=== PATIENT | male | born 1940 | race Caucasian/White ===

== ENCOUNTER → 2019-03-22 14:05 | Outpatient (CLI) | payer MEDICARE, SELFPAY ==
[2019-03-22 14:40] LABS: Basophils # 0.1 K/mm3 (0-0.2); Basophils % 1.1 % (0.1-2.0); Eosinophils # 0.3 K/mm3 (0.0-0.4); Eosinophils % 5.3 % (0.1-12.0); Hematocrit 44.7 % (42.0-52.0); Hemoglobin 13.7 g/dL (14.1-18.0); Lymphocytes # 1.7 K/mm3 (0.7-4.5); Lymphocytes % 34.9 % (10-50); Mean Corpuscular HGB Conc 30.5 g/dL (31.8-35.4); Mean Corpuscular Hemoglobin 30.9 pg (27.0-31.2); Mean Corpuscular Volume 101.3 fl (80-94); Mean Platelet Volume 8.1 fl (7.4-10.4); Monocytes # 0.5 K/mm3 (0.1-1.0); Neutrophils # 2.4 K/mm3 (1.8-7.8); Neutrophils % 48.7 % (37.0-80.0); Platelet Count 258 K/mm3 (142-424); Red Blood Count 4.41 M/mm3 (4.60-6.20); Red Cell Distribution Width 14.3 % (11.5-17.5); White Blood Count 4.9 K/mm3 (4.8-10.8)
[2019-03-22 15:23] LABS: Erythrocyte Sedimentation Rate 29 mm/hr (0-20)
[2019-03-22 15:58] LABS: Alanine Aminotransferase 45 U/L (12-78); Albumin Level 3.3 gm/dL (3.4-5.0); Alkaline Phosphatase 166 U/L (46-116); Anion Gap 14.6 mEq/L (5-15); Aspartate Amino Transferase 47 U/L (15-37); Bilirubin,Direct 0.1 mg/dL (0.0-0.2); Bilirubin,Indirect 0.3 mg/dL (0.0-0.9); Bilirubin,Total 0.4 mg/dL (0.2-1.0); Blood Urea Nitrogen 14 mg/dL (7-18); Calcium 8.3 mg/dL (8.5-10.1); Carbon Dioxide 26 mmol/L (21.0-32.0); Chloride 103 mmol/L (98-107); Estimated Glomerular Filt Rate 72 ml/min (>60); GFR (African American) 88 ML/MIN (>60); Magnesium 1.9 mg/dL (1.4-2.2); Phosphorous 3.3 mg/dL (2.4-4.9); Potassium 4.6 mmoL/L (3.5-5.1); Prostate Specific Ag Screen 1.4 ng/mL (0.0-4.0); Sodium 139 mmol/L (136-145); Thyroid Stimulating Hormone 1.49 uIU/ml (0.358-3.740); Total Protein,Serum 7.3 gm/dL (6.4-8.2)
[2019-03-22 16:21] LABS: Glucose 112 mg/dL (74-106)
[2019-03-24 11:43] LABS: Vitamin B12 389 pg/mL (232-1245); Vitamin D 25 Hydroxy 25.5 ng/mL (30.0-100.0)
== END ==
PROVIDERS: Visit Provider Internal Medicine
DX: Z00.00 Encounter for general adult medical examination without abnormal findings (principal); Z12.5 Encounter for screening for malignant neoplasm of prostate; E03.9 Hypothyroidism, unspecified; E55.9 Vitamin D deficiency, unspecified
CPT/HCPCS: 36415; 80069; 80076; 82607; 82652; 83735; 84443; 85025; 85651; G0103

== ENCOUNTER 2022-06-09 22:43 | Emergency (ER) | payer MEDICARE, SELFPAY ==
--- NOTE | 2022-06-09 22:40 | ECG_ITS ---
APPROVED REPORT Exam: Resting ECG HR:99 bpm ECG Measurements Heart Rate 99 AXES MT 137 P 19 QRSd 133 QRS -4 QT 344 T 106 QTc 400 Conclusion ELECTRONIC VENTRICULAR PACEMAKER ABNORMAL RHYTHM ECG UNCONFIRMED REPORT Electronically signed by : Ernst Ro MD 06/10/2022 11:11:27
[2022-06-09 22:43] VITALS: BP 163/81; PULSE 103; RESP 22; TEMP 37.2; O2SAT 93; BMI 26.6
--- NOTE | 2022-06-09 22:51 | XR_ITS ---
PROCEDURE INFORMATION: Exam: XR Chest Exam date and time: 06/09/2022 11:09 PM Age: 82 years old Clinical indication: Fever and shortness of breath; Prior surgery; Surgery date: 6+ months; Surgery type: Pacemaker; Additional info: SOA, fever, chills, recent knee surgery TECHNIQUE: Imaging protocol: Radiologic exam of the chest. Views: 1 view. COMPARISON: CR XR RIBS RT MIN 3V W CXR1V 06/14/2019 1:03 PM FINDINGS: Tubes, catheters and devices: Pacemaker in good position. Lungs: Right lower lobe atelectasis. Pleural spaces: Unremarkable. No pleural effusion. No pneumothorax. Heart/Mediastinum: Unremarkable. No cardiomegaly. Bones/joints: Unremarkable. IMPRESSION: Right lower lobe atelectasis.
[2022-06-09 22:56] LABS: Coronavirus 19, PCR Not Detected (NotDetected); Influenza A, PCR Not Detected (NotDetected); Influenza B, PCR Not Detected (NotDetected)
[2022-06-09 23:01] VITALS: BP 143/79; PULSE 96; O2SAT 94
[2022-06-09 23:22] LABS: Basophils % 0.7 % (0.1-2.0); Eosinophils # 0.2 K/mm3 (0.0-0.4); Eosinophils % 3.7 % (0.1-12.0); Hematocrit 38.7 % (42.0-52.0); Hemoglobin 12.5 g/dL (14.1-18.0); Lymphocytes # 0.6 K/mm3 (0.7-4.5); Lymphocytes % 11.8 % (10-50); Mean Corpuscular HGB Conc 32.2 g/dL (31.8-35.4); Mean Corpuscular Hemoglobin 31.9 pg (27.0-31.2); Mean Corpuscular Volume 99.1 fl (80-94); Mean Platelet Volume 8.9 fl (7.4-10.4); Monocytes # 0.3 K/mm3 (0.1-1.0); Monocytes % 4.9 % (1.7-9.3); Neutrophils # 4.3 K/mm3 (1.8-7.8); Neutrophils % 78.9 % (37.0-80.0); Platelet Count 242 K/mm3 (142-424); White Blood Count 5.4 K/mm3 (4.8-10.8)
[2022-06-09 23:23] LABS: Alanine Aminotransferase 43 U/L (12-78); Albumin Level 3.9 g/dl (3.5-5.0); Albumin/Globulin Ratio 1.1 (1.1-1.8); Alkaline Phosphatase 247 U/L (38-126); Anion Gap 10.3 mEq/L (5-15); Aspartate Amino Transferase 78 U/L (17-59); Bilirubin,Total 0.6 mg/dl (0.2-1.3); Blood Urea Nitrogen 14 mg/dl (9-20); Calcium 9.2 mg/dl (8.4-10.2); Carbon Dioxide 29 mmol/L (22.0-30.0); Chloride 103 mmol/L (98-107); Creatinine Clearance Estimated 64 mL/min (50-200); Estimated Glomerular Filt Rate 81 ml/min (>60); GFR (African American) 98 ML/MIN (>60); Globulin 3.4 g/dL (1.3-3.2); Glucose 159 mg/dl (74-100); Potassium 4.3 mmoL/L (3.5-5.1); Sodium 138 mmol/L (136-145); Total Protein,Serum 7.3 g/dl (6.3-8.2)
[2022-06-09 23:26] LABS: Lactic Acid 2.2 mmol/L (0.7-2.1)
[2022-06-09 23:29] LABS: C-Reactive Protein 102.5 mg/L (0-4)
[2022-06-09 23:38] LABS: NT Pro Brain Natriuretic Pep. 839 pg/mL (0-450)
[2022-06-09 23:40] LABS: Troponin I < 0.01 ng/ml (0.00-0.034)
[2022-06-09 23:42] LABS: Procalcitonin 0.107 ng/mL (0.0-2.0)
[2022-06-09 23:51] LABS: Erythrocyte Sedimentation Rate 81 mm/hr (0-20)
[2022-06-10] VITALS (11 sets, daily range): BP systolic 126–166; BP diastolic 61–85; PULSE 77–98; RESP 16–22; TEMP 36.6; O2SAT 93–98
--- NOTE | 2022-06-10 01:11 | CT_ITS ---
PROCEDURE INFORMATION: Exam: CTA Chest With Contrast Exam date and time: 06/10/2022 2:01 AM Age: 82 years old Clinical indication: Dyspnea and fever; Prior surgery; Surgery date: 6+ months; Surgery type: Pacemaker; Additional info: SOA TECHNIQUE: Imaging protocol: Computed tomographic angiography of the chest with contrast. 3D rendering (Not supervised by radiologist): MIP and/or 3D reconstructed images were created by the technologist. Radiation optimization: All CT scans at this facility use at least one of these dose optimization techniques: automated exposure control; mA and/or kV adjustment per patient size (includes targeted exams where dose is matched to clinical indication); or iterative reconstruction. Contrast material: ISOVUE; Contrast volume: 70 ml; Contrast route: INTRAVENOUS (IV); COMPARISON: CR (CHEST, CXR AP LANDSCAPE) 06/09/2022 11:09 PM FINDINGS: Tubes, catheters and devices: Dual lead pacing device enters from the left subclavian vein. Pulmonary arteries: Normal. No pulmonary emboli. Aorta: Unremarkable. No aortic aneurysm. No aortic dissection. Lungs: There are atelectatic changes at the lung bases. Pleural spaces: Unremarkable. No pneumothorax. No pleural effusion. Heart: Unremarkable. Mild cardiomegaly. No pericardial effusion. Lymph nodes: Nonspecific portacaval lymph node measuring 11 x 17 mm image 123 series 5. Other smaller nonspecific upper abdominal lymph nodes are present as well. There are few nonspecific mediastinal lymph nodes noted in the largest in the subcarinal region image 59 series 5 measuring 10 x 17 mm. Bones/joints: Old rib fractures are noted bilaterally. Soft tissues: Unremarkable. IMPRESSION: 1. There is no pulmonary embolus or acute aortic findings. 2. Bibasilar atelectasis is present. 3. Nonspecific mediastinal and upper abdominal lymph nodes.
--- NOTE | 2022-06-10 01:20 | HMH.EDSOB ---
Discharge Plan Disposition Patient Disposition: Home, Self-Care Chief Complaint: Shortness of Breath/Dyspnea Prescriptions Prescriptions: No Action oxycodone-acetaminophen 5-325 mg tablet 2 tab PO Q6 pantoprazole 40 mg tablet,delayed release (DR/EC) 40 mg PO DAILY diazepam 5 mg tablet 5 mg PO Q8 cefuroxime axetil 500 mg Tablet 500 mg PO BID escitalopram oxalate [Lexapro] 20 mg Tablet 20 mg PO DAILY tizanidine 4 MG tablet 4 mg PO DAILYP PRN (Reason: PAIN) aspirin 81 MG tablet,delayed release (DR/EC) 81 mg PO DAILY carvedilol 3.125 MG tablet 3.125 mg PO BID pravastatin 20 MG tablet 20 mg PO DAILY benazepril 10 MG tablet 10 mg PO DAILY Clinical Impressions Clinical Impression: Acute dyspnea, Post-operative state Instructions Patient Instructions: DI for Shortness of Breath Discharge ED Provider: Cedrick Goodman Resp/SOB HPI General Chief Complaint: Shortness of Breath/Dyspnea Stated Complaint: shorts of breath Time Seen by Provider: 06/10/22 01:00 Mode of Arrival: EMS Source of Information: Patient Limitations: No Limitations Description of Symptoms (Recalled from ER Triage Doc. by RN): EMS called out for SOA. pt c/o SOA, chills ,fever. pt has a lt knee replacement done on friday History of Present Illness pt with recent lt knee replacement with sob and has been compliant with meds Complaint: shortness of breath Onset (ago): hour(s) Severity: moderate Associated symptoms: denies other symptoms Related Data Home oxygen amount: none Home Medications Medication Instructions Recorded Confirmed aspirin 81 mg tablet,delayed 81 mg PO DAILY HEART 06/14/19 06/09/22 release benazepril 10 mg tablet 10 mg PO DAILY Hypertension 06/14/19 06/09/22 carvedilol 3.125 mg tablet 3.125 mg PO BID Hypertension 06/14/19 06/09/22 pravastatin 20 mg tablet 20 mg PO DAILY Cholesterol 06/14/19 06/09/22 tizanidine 4 mg tablet 4 mg PO DAILYP PRN PAIN 06/14/19 06/09/22 cefuroxime axetil 500 mg tablet 500 mg PO BID Infection 06/09/22 06/09/22 diazepam 5 mg tablet 5 mg PO Q8 Pain 06/09/22 06/09/22 escitalopram oxalate 20 mg tablet 20 mg PO DAILY Depression 06/09/22 06/09/22 (Lexapro) oxycodone-acetaminophen 5 mg-325 2 tab PO Q6 Pain 06/09/22 06/09/22 mg tablet pantoprazole 40 mg tablet,delayed 40 mg PO DAILY GERD 06/09/22 06/09/22 release Allergies Allergy/AdvReac Type Severity Reaction Status Date / Time No Known Allergies Allergy Verified 03/10/20 11:31 Well's Criteria PE Score Clinical signs/symptoms of DVT: Yes PE is #1 diagnosis or equally likely: Yes Heart rate is > 100: No Immobile at least 3 days, or surgery in past 4 wks: Yes Previously, obj. diagnosed PE or DVT: No Hemoptysis: No Malignancy w/Rx within 6mo, or palliative: No PE Score: 7 Risk of Pulmonary Embolism by score: >3 pts=Hi Risk (78%) [facility] Disclaimer: The information contained in this section may have been updated after the patient was seen, as this information can be updated by other users. Social History Smoking Status: Former smoker alcohol intake: never current occupational status: other Travel in the last 8 weeks: None ROS Obtained: Yes All systems reviewed & no additional complaints except as documented Physical Exam General General appearance: alert Head Head exam: normocephalic Eye Eye exam: Present PERRL and EOMI ENT ENT exam: Present mucous membranes moist Neck Neck exam: Present trachea midline Respiratory Respiratory exam: Absent respiratory distress Cardiovascular Cardiovascular exam: Present regular rate Abdominal Exam Abdominal exam: Present soft Expanded Lower Extremity Exam Left: Lower leg exam: Present tenderness, swelling and other (surg site clear ); Absent Homans' sign Neurological Exam Neurological exam: Present alert, oriented X3 and CN II-XII intact; Absent motor sensory deficit Psychiatric Psychiatric e
[2022-06-10 01:41] LABS: Reflex Lactic Add Lactic Reflex
[2022-06-10 01:55] LABS: Lactic Acid Follow Up (RFLX 1) 1.2 mmol/L (0.7-2.1)
[2022-06-10 02:14] LABS: Troponin I < 0.01 ng/ml (0.00-0.034)
[2022-06-10 05:19] LABS: Troponin I < 0.01 ng/ml (0.00-0.034)
--- NOTE | 2022-06-10 07:08 | PC.NURSE ---
vascular lab reported no DVTs
--- NOTE | 2022-06-10 08:11 | PC.NURSE ---
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
--- NOTE | 2022-06-11 09:39 | PC.NURSE ---
0935 BLOOD CULTURE RESULTS RECEIVED FROM [facility] IN LAB AT THIS TIME. PT NAME AND R/V [id number]. GRACIE NOTIFIED OFR BLOOD CULTURE RESULTS, NO NEW ORDERS
== END 2022-06-10 08:00 | disposition home or self-care (01) ==
PROVIDERS: Emergency Provider Emergency Medicine
DX: R06.02 Shortness of breath (principal); R05.9 Cough, unspecified; Z20.822 Contact with and (suspected) exposure to COVID-19; Z79.82 Long term (current) use of aspirin; Z79.899 Other long term (current) drug therapy; Z96.652 Presence of left artificial knee joint; Z87.891 Personal history of nicotine dependence
CPT/HCPCS: 71045; 71275; 80053; 83605; 83880; 84145; 84484; 85025; 85651; 86140; 87040; 87075; 87077; 87186; 93005; 93970; 96360; 99285; C9803; Q9967; U0003; U0005

== ENCOUNTER 2023-10-12 17:09 | Emergency (ER) | payer MEDICARE, SELFPAY ==
[2023-10-12] VITALS (8 sets, daily range): BP systolic 133–194; BP diastolic 76–121; PULSE 63–75; RESP 11–20; TEMP 36.6–36.8; O2SAT 94–100; BMI 25.8
--- NOTE | 2023-10-12 17:22 | ED_ITS ---
Discharge Plan Disposition Patient Disposition: Home, Self-Care Condition: Good Prescriptions Prescriptions: New oxycodone-acetaminophen 5-325 mg tablet 1 tab PO Q6H PRN (Reason: pain) Qty: 10 0RF Discontinued oxycodone-acetaminophen 5-325 mg tablet 2 tab PO Q6 No Action pantoprazole 40 mg tablet,delayed release (DR/EC) 40 mg PO DAILY diazepam 5 mg tablet 5 mg PO Q8 cefuroxime axetil 500 mg Tablet 500 mg PO BID escitalopram oxalate [Lexapro] 20 mg Tablet 20 mg PO DAILY tizanidine 4 MG tablet 4 mg PO DAILYP PRN (Reason: PAIN) aspirin 81 MG tablet,delayed release (DR/EC) 81 mg PO DAILY carvedilol 3.125 MG tablet 3.125 mg PO BID pravastatin 20 MG tablet 20 mg PO DAILY benazepril 10 MG tablet 10 mg PO DAILY Referrals Follow up/Referrals: Alonso Loo, [Staff Physician] - See instructions Provider,Referral, MD [Primary Care Provider] - See instructions Activity Restrictions/Add. Instructions Additional Instructions/Restrictions: Take Tylenol alternating every 4 hours with Motrin as needed for pain. Please call in the morning to get your appointment time with Dr. Loo of orthopedics. Clinical Impressions Clinical Impression: Distal radius fracture, left, Fracture of ulnar styloid Discharge ED Provider: Bethany Esparza General Adult HPI <REBEKAH Manriquez - Last Filed: 10/12/23 20:30> General Chief complaint: Extremity Injury, Upper Stated complaint: AO 10/12/23 1630 Injury left arm Time Seen by Provider: 10/12/23 17:22 History of Present Illness HPI narrative: Patient presents for evaluation of the left upper extremity injury. Patient was unloading his horse from his horse trailer when the slipped. Patient put his left hand behind him to prevent his fall which was successful however he felt a very abrupt sharp pain at the left wrist. He was able to continue offloading his horse and then presented to the emergency department for evaluation. Patient denies striking his head or losing consciousness or any other injury other than at the Left wrist. Related Data Home Medications Medication Instructions Recorded Confirmed aspirin 81 mg tablet,delayed 81 mg PO DAILY HEART 06/14/19 06/09/22 release benazepril 10 mg tablet 10 mg PO DAILY Hypertension 06/14/19 06/09/22 carvedilol 3.125 mg tablet 3.125 mg PO BID Hypertension 06/14/19 06/09/22 pravastatin 20 mg tablet 20 mg PO DAILY Cholesterol 06/14/19 06/09/22 tizanidine 4 mg tablet 4 mg PO DAILYP PRN PAIN 06/14/19 06/09/22 cefuroxime axetil 500 mg tablet 500 mg PO BID Infection 06/09/22 06/09/22 diazepam 5 mg tablet 5 mg PO Q8 Pain 06/09/22 06/09/22 escitalopram oxalate 20 mg tablet 20 mg PO DAILY Depression 06/09/22 06/09/22 (Lexapro) pantoprazole 40 mg tablet,delayed 40 mg PO DAILY GERD 06/09/22 06/09/22 release Previous Rx's Medication Instructions Recorded oxycodone-acetaminophen 5 mg-325 1 tab PO Q6H PRN pain #10 tabs 10/12/23 mg tablet Allergies Allergy/AdvReac Type Severity Reaction Status Date / Time No Known Allergies Allergy Verified 03/10/20 11:31 [facility] <REBEKAH Manriquez - Last Filed: 10/12/23 20:30> [facility] Disclaimer: The information contained in this section may have been updated after the patient was seen, as this information can be updated by other users. Social History Smoking Status: Never smoker alcohol intake: never current occupational status: other Travel in the last 8 weeks: None <REBEKAH Manriquez - Last Filed: 10/12/23 20:30> ROS Obtained: Yes Systems reviewed as appropriate & no additional complaints except as documented Physical Exam <REBEKAH Manriquez - Last Filed: 10/12/23 20:30> General General appearance: alert and in no apparent distress Neck Neck exam: Present normal inspection; Absent tenderness Respiratory Respiratory exam: Present normal lung sounds bilaterally; Absent respiratory distress Cardiovascular Cardiovascular exam: Present regular rate and normal rhythm Neurological Exam Neurological exam: Present alert and oriented X3 Other Other exam information: 3 unaffected extremities are intact grossly to exam with full range of motion. Left upper extremity has an obvious deformity at the distal forearm. Patient has palpable pulses and I have marked the radial. He is neurovascular intact distally. He has motor and sensory intact. Medical Decision Making <REBEKAH Manriquez - Last Filed: 10/12/23 20:30> Medical Records Medical records reviewed: Yes I reviewed the patient's medical records. Adan Inquiry Pt receiving controlled substance: No Vital Signs: 10/12/23 17:18 10/12/23 17:21 10/12/23 17:30 Temperature 97.9 F Temperature Source Oral Pulse Rate 74 75 Pulse Rate [Left Radial] 63 Respiratory Rate 20 Blood Pressure 136/76 178/85 H Blood Pressure [Right Arm] 136/76 Blood Pressure Mean [Right Arm] 96 02 Sat by Pulse Oximetry 97 97 96 Oxygen Delivery Method Room Air Room Air Room Air Oxygen Flow Rate (LPM) 10/12/23 18:00 10/12/23 20:00 10/12/23 20:15 Temperature 98.1 F 98.0 F Temperature Source Oral Oral Pulse Rate 71 Pulse Rate [Left Radial] 74 63 Respiratory Rate 11 L 12 Blood Pressure 147/84 H Blood Pressure [Right Arm] 194/121 H 152/81 H Blood Pressure Mean [Right Arm] 145 104 02 Sat by Pulse Oximetry 94 L 100 96 Oxygen Delivery Method Room Air Nasal Cannula Nasal Cannula Oxygen Flow Rate (LPM) 4 2 10/12/23 20:26 10/12/23 20:45 Temperature 98.3 F 98.3 F Temperature Source Oral Oral Pulse Rate 67 Pulse Rate [Left Radial] 70 Respiratory Rate 13 12 Blood Pressure 133/104 H Blood Pressure [Right Arm] 178/101 H Blood Pressure Mean [Right Arm] 126 02 Sat by Pulse Oximetry 100 Oxygen Delivery Method Nasal Cannula Room Air Oxygen Flow Rate (LPM) 2 Lab Data Lab results reviewed: Yes I reviewed the patient's lab results. Orders (Tests/Meds): ED MEDICATIONS Discontinued Medications Generic Name Dose Route Start Last Admin Trade Name Afsaneh PRN Reason Stop Dose Admin Acetaminophen 1,000 mg 10/12/23 17:25 10/12/23 17:31 Acetaminophen 500mg Tab PO 10/12/23 17:26 1,000 mg ONCE ONE Administration Ketamine HCl 75 mg 10/12/23 19:31 10/12/23 19:40 Ketamine 50mg/1ml Syringe IV 10/12/23 19:32 75 mg ONCE ONE Administration Ketamine HCl 75 mg 10/12/23 19:34 10/12/23 20:41 Ketamine 50mg/1ml Syringe IV 10/12/23 19:35 25 mg ONCE ONE Administration Oxycodone HCl 5 mg 10/12/23 18:15 Oxycodone 5mg Immediate Release Tablet PO 10/12/23 18:16 ONCE ONE ORDERS Category Date Time Status Forearm XR left 2 views [XR forearm LT 2V] Stat Exams 10/12/23 17:23 Completed Hand XR left minimum 3 views [XR hand LT min 3V] Stat Exams 10/12/23 17:23 Completed Wrist XR left 2 views [XR wrist LT 2V] Stat Exams 10/12/23 17:23 Completed Wrist XR left 2 views [XR wrist LT 2V] Stat Exams 10/12/23 19:33 Completed Medical Decision Narrative: In summary patient is a 83-year-old male with a who presents to the emergency department for evaluation of upper extremity injury. Patient is hemodynamically stable upon arrival, febrile. Physical exam is remarkable for an obvious deformity at the left distal forearm with intact neurovascular status distally.. Differential diagnosis includes fracture versus dislocation versus compartment syndrome etc. Initial workup will be conducted with plain film x-rays.. Initial interventions include Toradol Tylenol. Initial workup reviewed by me shows my informal interpretation a distal radius fracture and a ulnar styloid fracture. At that point I had a interactive discussion with orthopedic surgery Dr. Loo. After we and align and place the patient in a sugar-tong splint we will discharge with follow-up with Dr. Loo next week. Upon repeat evaluation had interactive discussion with the patient who is agreeable for us to perform the reduction in the emergency department.. Given this appropriate for discharge and his current splint to follow-up with Dr. Loo on Friday. <Bethany Esparza MD - Last Filed: 10/12/23 22:22> Vital Signs: 10/12/23 17:18 10/12/23 17:21 10/12/23 17:30 Temperature 97.9 F Temperature Source Oral Pulse Rate 74 75 Pulse Rate [Left Radial] 63 Respiratory Rate 20 Blood Pressure 136/76 178/85 H Blood Pressure [Right Arm] 136/76 Blood Pressure Mean [Right Arm] 96 02 Sat by Pulse Oximetry 97 97 96 Oxygen Delivery Method Room Air Room Air Room Air Oxygen Flow Rate (LPM) 10/12/23 18:00 10/12/23 20:00 10/12/23 20:15 Temperature 98.1 F 98.0 F Temperature Source Oral Oral Pulse Rate 71 Pulse Rate [Left Radial] 74 63 Respiratory Rate 11 L 12 Blood Pressure 147/84 H Blood Pressure [Right Arm] 194/121 H 152/81 H Blood Pressure Mean [Right Arm] 145 104 02 Sat by Pulse Oximetry 94 L 100 96 Oxygen Delivery Method Room Air Nasal Cannula Nasal Cannula Oxygen Flow Rate (LPM) 4 2 10/12/23 20:26 10/12/23 20:45 Temperature 98.3 F 98.3 F Temperature Source Oral Oral Pulse Rate 67 Pulse Rate [Left Radial] 70 Respiratory Rate 13 12 Blood Pressure 133/104 H Blood Pressure [Right Arm] 178/101 H Blood Pressure Mean [Right Arm] 126 02 Sat by Pulse Oximetry 100 Oxygen Delivery Method Nasal Cannula Room Air Oxygen Flow Rate (LPM) 2 Orders (Tests/Meds): ED MEDICATIONS Discontinued Medications Generic Name Dose Route Start Last Admin Trade Name Freq PRN Reason Stop Dose Admin Acetaminophen 1,000 mg 10/12/23 17:25 10/12/23 17:31 Acetaminophen 500mg Tab PO 10/12/23 17:26 1,000 mg ONCE ONE Administration Ketamine HCl 75 mg 10/12/23 19:31 10/12/23 19:40 Ketamine 50mg/1ml Syringe IV 10/12/23 19:32 75 mg ONCE ONE Administration Ketamine HCl 75 mg 10/12/23 19:34 10/12/23 20:41 Ketamine 50mg/1ml Syringe IV 10/12/23 19:35 25 mg ONCE ONE Administration Oxycodone HCl 5 mg 10/12/23 18:15 Oxycodone 5mg Immediate Release Tablet PO 10/12/23 18:16 ONCE ONE ORDERS Category Date Time Status Forearm XR left 2 views [XR forearm LT 2V] Stat Exams 10/12/23 17:23 Completed Hand XR left minimum 3 views [XR hand LT min 3V] Stat Exams 10/12/23 17:23 Completed Wrist XR left 2 views [XR wrist LT 2V] Stat Exams 10/12/23 17:23 Completed Wrist XR left 2 views [XR wrist LT 2V] Stat Exams 10/12/23 19:33 Completed Medical Decision Narrative: In summary patient is a 83-year-old male with a who presents to the emergency department for evaluation of upper extremity injury. Patient is hemodynamically stable upon arrival, febrile. Physical exam is remarkable for an obvious deformity at the left distal forearm with intact neurovascular status distally.. Differential diagnosis includes fracture versus dislocation versus compartment syndrome etc. Initial workup will be conducted with plain film x-rays.. Initial interventions include Toradol Tylenol. Initial workup reviewed by me shows my informal interpretation a distal radius fracture and a ulnar styloid fracture. At that point I had a interactive discussion with orthopedic surgery Dr. Loo. After we and align and place the patient in a sugar-tong splint we will discharge with follow-up with Dr. Loo next week. Upon repeat evaluation had interactive discussion with the patient who is agreeable for us to perform the reduction in the emergency department.. Given this appropriate for discharge and his current splint to follow-up with Dr. Loo on Friday. Bethany Esparza MD Attestation: I was consulted by the [place] and we discussed the complexity of the problems being addressed. I approved the treatment and management plan for this patient's care in the emergency department, thus performing a substantive portion of the medical decision making. I performed the procedures associated with this visit including the procedural sedation and fracture reduction. Procedures <Bethany Esparza MD - Last Filed: 10/12/23 22:22> Orthopedic Fracture Reduction Fracture #1: Time Out Performed: Yes Side: left Fracture Reduction Location: radius Analgesia: procedural sedation Technique: direct manipulation and traction/counter-traction Post Reduction X-rays Demonstrate: acceptable reduction Post-reduction neuro exam: intact Post-reduction vascular exam: intact Splint Applied: Yes Patient Tolerated Procedure: well Additional Comments: Performed by Bethany Esparza MD. Procedural Sedation A heart and lung assessment was performed on this patient at: 19:10 Mallampati Score:: Class I Indication: fracture/dislocation reduction ASA Class: I Preparation: ensemble member applied, pulse oximeter, capnometry used, supplemental O2 applied, suction/airway equipment at bedside and IV secured Ketamine: IV Ketamine dose (mg): 125 Patient Tolerated Procedure: other (Patient tolerated procedure well however did have transient respiratory depression that required jaw thrust and nonrebreather.) Complications: Respiratory Depression-Repositioning Required Interventions: oxygen applied and airway repositioned Additional Comments: Performed by Bethany Esparza MD. Critical Care <REBEKAH Manriquez - Last Filed: 10/12/23 20:30> Critical Care Time Critical Care Time: No
--- NOTE | 2023-10-12 17:23 | XR_ITS ---
PROCEDURE INFORMATION: Exam: XR Left Forearm Exam date and time: 10/12/2023 5:28 PM Age: 83 years old Clinical indication: Injury or trauma; Blunt trauma (contusions or hematomas); Wrist; Left TECHNIQUE: Imaging protocol: Radiologic exam of the left forearm. Views: 2 views. COMPARISON: CR XR HAND LT MIN 3V 10/12/2023 5:28 PM FINDINGS: Bones/joints: Comminuted intra-articular fracture of the distal radius. Displaced ulnar styloid fracture. Proximal ulna and radius appear intact. Mild degenerative changes at the wrist and elbow Soft tissues: Normal. IMPRESSION: Fractures of the distal radius and ulnar styloid
--- NOTE | 2023-10-12 17:23 | XR_ITS ---
PROCEDURE INFORMATION: Exam: XR Left Wrist Exam date and time: 10/12/2023 5:28 PM Age: 83 years old Clinical indication: Injury or trauma; Blunt trauma (contusions or hematomas); Wrist; Left TECHNIQUE: Imaging protocol: Radiologic exam of the left wrist. Views: 1 or 2 views. COMPARISON: CR XR FOREARM LT 2V 10/12/2023 5:28 PM FINDINGS: Bones/joints: Comminuted intra-articular fracture of the distal radius with mild dorsal angulation of the major distal fragments. Displaced ulnar styloid fracture noted. No other acute fracture. Carpal bones appear intact and normally aligned. Mild degenerative changes in the radial aspect of the wrist. Soft tissues: Normal. IMPRESSION: Acute fractures of the distal radius and ulnar styloid as described
--- NOTE | 2023-10-12 17:23 | XR_ITS ---
PROCEDURE INFORMATION: Exam: XR Left Hand Exam date and time: 10/12/2023 5:28 PM Age: 83 years old Clinical indication: Injury or trauma; Blunt trauma (contusions or hematomas); Wrist; Left TECHNIQUE: Imaging protocol: Radiologic exam of the left hand. Views: 3 or more views. COMPARISON: CR XR FOREARM LT 2V 10/12/2023 5:28 PM FINDINGS: Bones/joints: Bones are diffusely osteopenic. Comminuted intra-articular fracture of the distal radius. Displaced ulnar styloid fracture. No other acute fracture. Mild degenerative changes throughout the interphalangeal joints. Soft tissues: Normal. IMPRESSION: Fractures of the distal radius and ulnar styloid. Otherwise chronic findings as noted.
[2023-10-12] MEDS: ACETAMINOPHEN 500MG TAB 1000 MG PO (17:31)
--- NOTE | 2023-10-12 18:05 | PC.NURSE ---
ROUNDED ON PT GAVE HIM A PILLOW TO HELP ELEVATE HIS ARM NO OTHER NEEDS AT THIS TIME AND RELAYED TO NURSES PT STATED HIS WAS IN PAIN,CALL LIGHT IN REACH
--- NOTE | 2023-10-12 18:33 | PC.NURSE ---
PT MOVED TO ROOM 2 FROM 9 TO PREPARE FOR CONSCIOUS SEDATION REDUCTION OF LEFT HAND PER
--- NOTE | 2023-10-12 18:45 | PC.NURSE ---
IV placed to RAC. CO2 monitor & NC placed to pt. wiper blender and Hemodynamic monitoring devices placed on pt.
--- NOTE | 2023-10-12 19:33 | XR_ITS ---
PROCEDURE INFORMATION: Exam: XR Left Wrist Exam date and time: 10/12/2023 7:48 PM Age: 83 years old Clinical indication: Injury or trauma; Fall; Fracture, traumatic injury; Closed fracture; Wrist; Left; Additional info: Postreduction TECHNIQUE: Imaging protocol: Radiologic exam of the left wrist. Views: 1 or 2 views. COMPARISON: CR XR WRIST LT 2V 10/12/2023 5:28 PM FINDINGS: Bones/joints: Slight improvement of comminuted intra-articular distal radius fracture. Ulnar styloid fracture not well demonstrated. Degenerative changes of the wrist again noted. Soft tissues: Normal. Other findings: Casting material now in place. IMPRESSION: Slight improved alignment of distal radius fracture with casting material now in place.
[2023-10-12] MEDS: KETAMINE 50MG/1ML SYRINGE 75 MG IV ×2 (19:40→20:41)
== END 2023-10-12 20:52 | disposition home or self-care (01) ==
PROVIDERS: Emergency Provider Emergency Medicine
DX: S52.612A Displaced fracture of left ulna styloid process, initial encounter for closed fracture; S52.512A Displaced fracture of left radial styloid process, initial encounter for closed fracture; W01.10XA Fall on same level from slipping, tripping and stumbling with subsequent striking against unspecified object, initial encounter
CPT/HCPCS: 99152; 73090; 73100; 73130; 96374; 99284

== ENCOUNTER 2024-04-03 18:18 | Emergency (ER) | payer MEDICARE, SELFPAY ==
[2024-04-03 18:21] VITALS: BP 166/87; PULSE 70; RESP 18; TEMP 36.6; O2SAT 98; BMI 25.0
--- NOTE | 2024-04-03 18:30 | PC.NURSE ---
DR MCFARLANE AT BEDSIDE
[2024-04-03 19:00] VITALS: BP 137/71; PULSE 69; O2SAT 98
--- NOTE | 2024-04-03 19:00 | HMH.EDGENADL ---
Discharge Plan Disposition Patient Disposition: Left Against Medical Advice Prescriptions Prescriptions: No Action pantoprazole 40 mg tablet,delayed release (DR/EC) 40 mg PO DAILY diazepam 5 mg tablet 5 mg PO Q8 cefuroxime axetil 500 mg Tablet 500 mg PO BID escitalopram oxalate [Lexapro] 20 mg Tablet 20 mg PO DAILY tizanidine 4 MG tablet 4 mg PO DAILYP PRN (Reason: PAIN) aspirin 81 MG tablet,delayed release (DR/EC) 81 mg PO DAILY carvedilol 3.125 MG tablet 3.125 mg PO BID pravastatin 20 MG tablet 20 mg PO DAILY benazepril 10 MG tablet 10 mg PO DAILY oxycodone-acetaminophen 5-325 mg tablet 1 tab PO Q6H PRN (Reason: pain) Qty: 10 0RF Referrals Follow up/Referrals: Provider,Referral, MD [Primary Care Provider] - See instructions Clinical Impressions Clinical Impression: Headache, Left against medical advice, Fall from horse, Rib pain on right side Print Language Print Language: Cypriot Discharge ED Provider: Tristen Valle Adult HPI General Chief complaint: Headache Stated complaint: [id number] back inj Time Seen by Provider: 04/03/24 18:39 Mode of Arrival: Ambulatory Source of Information: Patient Limitations: No Limitations Description of Symptoms (Recalled from ER Triage Doc. by RN): PT AMBULATORY TO ED. PT STATES HE WAS ATTEMPTING TO GET ON HIS HORSE WHEN HE WAS TOSSED TO THE GROUND, OCCURED YESTERDAY WHILE ON [place]. PT DID NOT SEEK CARE YESTERDAY. LANDED ON RIGHT SIDE. REPORTS POSSIBLE LOC FOR A FEW SECONDS ABRASIONS NOTED TO RIGHT SIDE OF BACK AND BRUISING NOTED. 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 Patient states that yesterday, he was riding a horse and the horse bucked, causing him to fall off the back. He states that he landed on his right back and did hit his head on the ground. He states that he did lose consciousness for approximately 4 to 5 seconds. Since then, he has had worsening pain to his right flank and right chest. He states that his pain is not worse with breathing. He complains of a mild headache but denies any neck pain or back pain. He denies any abdominal pain. He is concerned that he might have rib fractures. He denies any pain to his extremities. He denies any blood thinner use but does note that he takes aspirin. Related Data Home Medications ?Medication ?Instructions ?Recorded ?Confirmed aspirin 81 mg tablet,delayed 81 mg PO DAILY HEART 06/14/19 06/09/22 release benazepril 10 mg tablet 10 mg PO DAILY Hypertension 06/14/19 06/09/22 carvedilol 3.125 mg tablet 3.125 mg PO BID Hypertension 06/14/19 06/09/22 pravastatin 20 mg tablet 20 mg PO DAILY Cholesterol 06/14/19 06/09/22 tizanidine 4 mg tablet 4 mg PO DAILYP PRN PAIN 06/14/19 06/09/22 cefuroxime axetil 500 mg tablet 500 mg PO BID Infection 06/09/22 06/09/22 diazepam 5 mg tablet 5 mg PO Q8 Pain 06/09/22 06/09/22 escitalopram oxalate 20 mg tablet 20 mg PO DAILY Depression 06/09/22 06/09/22 (Lexapro) pantoprazole 40 mg tablet,delayed 40 mg PO DAILY GERD 06/09/22 06/09/22 release Previous Rx's ?Medication ?Instructions ?Recorded oxycodone-acetaminophen 5 mg-325 1 tab PO Q6H PRN pain #10 tabs 10/11/ mg tablet Allergies Allergy/AdvReac Type Severity Reaction Status Date / Time No Known Allergies Allergy Verified 03/10/20 11:31 [facility] Disclaimer: The information contained in this section may have been updated after the patient was seen, as this information can be updated by other users. Social History Smoking Status: Former smoker alcohol intake: never current occupational status: other Travel in the last 8 weeks: None ROS Obtained: Yes Systems reviewed as appropriate & no additional complaints except as documented Physical Exam General General appearance: alert and in no apparent distress Head Head exam: other (Superficial abrasion to the posterior scalp. No bony deformities.) Eye Eye exam: Present normal appearance ENT ENT exam: Present normal external ear exam Neck Neck exam: Present full ROM and trachea midline; Absent tenderness Chest Chest inspection: Present symmetric chest wall rise and tenderness (Right posterolateral chest wall without flail chest/deformity.) Respiratory Respiratory exam: Present normal lung sounds bilaterally; Absent respiratory distress Cardiovascular Cardiovascular exam: Present regular rate and normal rhythm Abdominal Exam Abdominal exam: Present soft; Absent tenderness, guarding, rebound or rigidity exam: Present deferred Extremities Exam Extremities exam: Present normal inspection Back Exam Back exam: Present normal inspection Neurological Exam Neurological exam: Present alert and oriented X3 Psychiatric Psychiatric exam: Present normal affect Skin Skin exam: Present warm, dry and other (Bruising to the RLQ. Superficial abrasions over the right lateral/posterior ribs and right flank.) Medical Decision Making Medical Records Screening: Per USPSTF and CDC recommendations, given the prevalence of disease in our region, it is our hospital?s policy to screen for HIV and viral Hepatitis for all patients aged 18 and over and those with ongoing risk factors. Adan Inquiry Pt receiving controlled substance: No Vital Signs: 04/03/24 18:21 04/03/24 19:00 04/03/24 20:22 Temperature 97.9 F 98.0 F Temperature Source Oral Oral Pulse Rate 69 78 Pulse Rate [Radial] 70 Respiratory Rate 18 20 Blood Pressure 137/71 140/80 Blood Pressure [Right Arm] 166/87 H Blood Pressure Mean 108 Blood Pressure Mean [Right Arm] 113 Blood Pressure Source [Right Arm] Automatic Cuff Blood Pressure Position [Right Arm] Sitting 02 Sat by Pulse Oximetry 98 98 Oxygen Delivery Method Room Air Room Air Room Air Orders (Tests/Meds): ORDERS Category Date Time Status POCUS Point of Care (ER Only) Stat Exams 04/03/24 18:41 Completed CBC w/Auto Diff [Complete Blood Count Auto Diff] Stat Lab 04/03/24 18:52 Ordered CMP [Comprehensive Metabolic Panel] Stat Lab 04/03/24 18:52 Ordered PT INR [Prothrombin Time INR] Stat Lab 04/03/24 18:52 Ordered Medical Decision Narrative: Jorge Beal is an 84y male with a 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 Patient was bucked from a horse and landed on his right side and hit his head yesterday with positive loss of consciousness. His right flank and right rib pain worsened today and he is concerned he might have rib fractures, which prompted his presentation to the emergency department today. On arrival, patient is hemodynamically stable, in no acute respiratory distress, breathing comfortably on room air. Physical exam shows superficial abrasions over the right posterior lateral ribs and flank with tenderness over this area. No flail chest. No obvious deformities. He does have some superficial abrasions over the posterior aspect of the scalp. No depressible fractures. Patient is to have any midline spine tenderness and no injuries to his extremities. Patient's complaints of mild pain to his right shoulder. [id number] E-FAST was performed and was negative. Patient had no intra-abdominal hypoechoic areas, no cardiac effusions, and lung sliding present bilaterally. Differential diagnosis includes: Rib fractures, pneumothorax, liver laceration, splenic laceration, intracranial hemorrhage, cervical spine fracture, among others Workup in the emergency department included: CT head without contrast, CT C-spine without contrast, CTA of the chest, CT abdomen pelvis with IV contrast, CBC, CMP, PT/INR. Pain medicine was offered, however patient declined at this time. Prior to being able to obtain IV access or CT imaging, patient stated that he felt like he did not have any serious injuries and wanted to go home. It was reiterated that we cannot rule out any significant traumatic injuries, including fractures, liver lacerations, intrathoracic injuries, intracranial injuries or any other type of injury without imaging studies, however he stated that he feels confident that he does not have any significant injuries at this time. He was reiterated that leaving at this time could result in worsening of his pain, increased morbidity and mortality. He demonstrated understanding and still stated that he wished to leave at this time. Patient is alert and oriented and demonstrates medical decision-making capacity. Given this, patient is leaving the emergency department as a patient directed discharge. Procedures FAST Exam FAST Exam 1: Fluid in Morison's pouch: No Fluid in Splenorenal Junction: No Fluid around bladder, Transverse view: No Fluid in Pericardial Sac: No Gross Wall Motion Abnormality: No Study normal for this patient: Yes Images saved for further review: Yes Critical Care Critical Care Time Critical Care Time: Yes Attestation: On 04/03/24, the high probability of a clinically significant, sudden or life threatening deterioration of the following system(s) required my full and direct attention, intervention and personal management. The time I documented below is in addition to time spent performing reported procedures but includes the following listed in this critical care notation. Total Time Total Critical Care Time: 35
--- NOTE | 2024-04-03 20:04 | PC.NURSE ---
Luz from [facility] contacted the ED in regards to lab work and IV status on this patient, I walk into the room to check to see if the patient had an IV in which the patient stated he was ready to leave, I advised him I would send the Doctor in. Dr. Valle was at bed side discussing with patient regarding CT's and he advised the patient would like to leave AMA.
[2024-04-03 20:22] VITALS: BP 140/80; PULSE 78; RESP 20; TEMP 36.7; O2SAT 98
== END 2024-04-03 20:25 | disposition left against medical advice (07) ==
PROVIDERS: Emergency Provider Student in an Organized Health Care Education/Training Program
DX: R51.9 Headache, unspecified (principal); M54.9 Dorsalgia, unspecified; R10.31 Right lower quadrant pain; R07.89 Other chest pain; R07.81 Pleurodynia; V80.010A Animal-rider injured by fall from or being thrown from horse in noncollision accident, initial encounter; Z53.29 Procedure and treatment not carried out because of patient's decision for other reasons
CPT/HCPCS: 99283

== ENCOUNTER 2025-03-17 00:01 | Emergency (ER) | payer MEDICARE, SELFPAY ==
[2025-03-17 00:09] VITALS: BP 177/81; PULSE 81; RESP 20; TEMP 36.7; O2SAT 97; BMI 23.5
--- NOTE | 2025-03-17 00:11 | HMH.EDGENADL ---
Discharge Plan Disposition Patient Disposition: Home, Self-Care Prescriptions Prescriptions: New lidocaine 5 % adhesive patch,medicated 1 patch topical DAILY PRN (Reason: pain) Qty: 30 0RF Rx Instructions: leave on most painful area for up to 12 hrs No Action pantoprazole 40 mg tablet,delayed release (DR/EC) 40 mg PO DAILY diazepam 5 mg tablet 5 mg PO Q8 cefuroxime axetil 500 mg Tablet 500 mg PO BID escitalopram oxalate [Lexapro] 20 mg Tablet 20 mg PO DAILY tizanidine 4 MG tablet 4 mg PO DAILYP PRN (Reason: PAIN) aspirin 81 MG tablet,delayed release (DR/EC) 81 mg PO DAILY carvedilol 3.125 MG tablet 3.125 mg PO BID pravastatin 20 MG tablet 20 mg PO DAILY benazepril 10 MG tablet 10 mg PO DAILY oxycodone-acetaminophen 5-325 mg tablet 1 tab PO Q6H PRN (Reason: pain) Qty: 10 0RF Referrals Follow up/Referrals: Provider,Referral, MD [Primary Care Provider, Medical] - See instructions Activity Restrictions/Add. Instructions Additional Instructions/Restrictions: You have a fracture of the transverse process of L1. Please follow-up with your primary care provider. Please return to the emergency department if you develop any new or worsening symptoms or become concerned for your health. There was an abnormality of uncertain importance noted in the trachea on your CT scan. Radiology recommends that you have a repeat CT scan or bronchoscopy for reassessment. Clinical Impressions Clinical Impression: Fracture of transverse process of lumbar vertebra Qualifiers: Encounter type: initial encounter Fracture type: closed Qualified Code(s): S32.009A - Unspecified fracture of unspecified lumbar vertebra, initial encounter for closed fracture Instructions Patient Instructions: DI for Low Back Pain Print Language Print Language: Tajik Discharge ED Provider: Anthony Chaudhari General Adult HPI General Chief complaint: Back Pain/Injury Stated complaint: thrown from a horse, sharp lower back pain Time Seen by Provider: 03/17/25 00:11 History of Present Illness HPI narrative: 85-year-old male without significant past medical history presents for fall from a horse. He reports that he was thrown from a horse this afternoon around 6 PM. He reports sharp stabbing low back pain on the left side. He denies hitting his head, denies loss of consciousness. He is not on blood thinners. He denies any other pain or injury at this time. Related Data Home Medications ?Medication ?Instructions ?Recorded ?Confirmed aspirin 81 mg tablet,delayed 81 mg PO DAILY HEART 06/14/19 06/09/22 release benazepril 10 mg tablet 10 mg PO DAILY Hypertension 06/14/19 06/09/22 carvedilol 3.125 mg tablet 3.125 mg PO BID Hypertension 06/14/19 06/09/22 pravastatin 20 mg tablet 20 mg PO DAILY Cholesterol 06/14/19 06/09/22 tizanidine 4 mg tablet 4 mg PO DAILYP PRN PAIN 06/14/19 06/09/22 cefuroxime axetil 500 mg tablet 500 mg PO BID Infection 06/09/22 06/09/22 diazepam 5 mg tablet 5 mg PO Q8 Pain 06/09/22 06/09/22 escitalopram oxalate 20 mg tablet 20 mg PO DAILY Depression 06/09/22 06/09/22 (Lexapro) pantoprazole 40 mg tablet,delayed 40 mg PO DAILY GERD 06/09/22 06/09/22 release Previous Rx's ?Medication ?Instructions ?Recorded oxycodone-acetaminophen 5 mg-325 1 tab PO Q6H PRN pain #10 tabs 10/12/23 mg tablet lidocaine 5 % topical patch 1 patch topical DAILY PRN pain #30 03/17/25 ea Allergies Allergy/AdvReac Type Severity Reaction Status Date / Time No Known Allergies Allergy Verified 03/10/20 11:31 [facility] Disclaimer: The information contained in this section may have been updated after the patient was seen, as this information can be updated by other users. Social History Smoking Status: Never smoker alcohol intake: never current occupational status: other Travel in the last 8 weeks?: None Have you lived/traveled outside [place] in past 30 days?: No Contact w/someone who lives/traveled outside US past 30 days?: No Exposure to someone with infectious disease in past 14 days?: No Do you have a fever (greater than 100.4 F or 38 C)?: No Have you tested positive for COVID-19?: No Exposed to someone with COVID-19 in past 14 days?: No Do you have a sore throat?: No Do you have a cough?: No Do you have any weakness?: No Do you have any diarrhea?: No Are you experiencing any unusual bleeding?: No Do you have any muscle aches/pain?: No Do you have any abdominal pain?: No Are you experiencing loss of taste or smell?: No ROS Obtained: Yes All systems reviewed & no additional complaints except as documented Physical Exam General General appearance: alert and in no apparent distress Head Head exam: atraumatic and normocephalic Eye Eye exam: Present normal appearance, PERRL and EOMI ENT ENT exam: Present normal oropharynx and normal external ear exam Neck Neck exam: Present normal inspection and full ROM Chest Chest inspection: Present normal inspection and symmetric chest wall rise; Absent tenderness Respiratory Respiratory exam: Present normal lung sounds bilaterally; Absent respiratory distress Cardiovascular Cardiovascular exam: Present regular rate and normal rhythm Abdominal Exam Abdominal exam: Present soft; Absent distention, tenderness or guarding Extremities Exam Extremities exam: Present normal inspection; Absent edema or joint swelling Back Exam Back exam: Present normal inspection and tenderness (Left low back tenderness, worse over SI joint) Neurological Exam Neurological exam: Present alert and oriented X3; Absent motor sensory deficit Psychiatric Psychiatric exam: Present normal affect and normal mood Skin Skin exam: Present warm, dry and normal color Lymphatic Lymphatic Findings: no adenopathy Medical Decision Making Medical Records Medical records reviewed: Yes I reviewed the patient's medical records. Screening: Per USPSTF and CDC recommendations, given the prevalence of disease in our region, it is our hospital?s policy to screen for HIV and viral Hepatitis for all patients aged 18 and over and those with ongoing risk factors. Adan Inquiry Pt receiving controlled substance: No Adan was queried for this patient: No Vital Signs: 03/17/25 00:09 03/17/25 00:36 03/17/25 02:15 Temperature 98.0 F 98.6 F Temperature Source Oral Oral Pulse Rate 78 66 Pulse Rate [Right Radial] 81 Respiratory Rate 20 16 16 Blood Pressure 179/86 H 176/90 H Blood Pressure [Right Arm] 177/81 H Blood Pressure Mean [Right Arm] 113 Blood Pressure Source [Right Arm] Automatic Cuff Blood Pressure Position [Right Arm] Sitting 02 Sat by Pulse Oximetry 97 97 96 Oxygen Delivery Method Room Air Room Air Room Air 03/17/25 02:31 Temperature 98.6 F Temperature Source Oral Pulse Rate 60 Pulse Rate [Right Radial] Respiratory Rate 16 Blood Pressure 157/77 H Blood Pressure [Right Arm] Blood Pressure Mean [Right Arm] Blood Pressure Source [Right Arm] Blood Pressure Position [Right Arm] 02 Sat by Pulse Oximetry Oxygen Delivery Method Room Air Lab Data Lab results reviewed: Yes I reviewed the patient's lab results. Lab Results 03/17/25 00:47: WBC 6.1, RBC 4.05 L, Hgb 13.3 L, Hct 39.6 L, MCV 97.8 H, MCH 32.8 H, MCHC 33.6, RDW 14.1, Plt Count 204, MPV 10.6 H, Neut % (Auto) 61.4, Lymph % (Auto) 22.3, Gregory % (Auto) 13.4 H, Eos % (Auto) 1.6, Baso % (Auto) 1.0, Neut # (Auto) 3.8, Lymph # (Auto) 1.4, Gregory # (Auto) 0.8, Eos # (Auto) 0.1, Baso # (Auto) 0.1, Sodium 137, Potassium 4.8, Chloride 102, Carbon Dioxide 24, Anion Gap 15.8 H, BUN 17, Creatinine 0.70, Estimated Creat Clear 54, Estimated GFR 108, Est GFR ( Amer) 130, Glucose 168 H, Calcium 9.3, Total Bilirubin 0.7, AST 85 H, ALT 67, Alkaline Phosphatase 367 H, Total Protein 7.9, Albumin 4.3, Globulin 3.6 H, Albumin/Globulin Ratio 1.2, HCV Ab STEVE w/Rflx PCR Qn Negative, HIV Ag/Ab Combo Qual Negative 03/17/25 00:47 03/17/25 00:47 Orders (Tests/Meds): ED MEDICATIONS Discontinued Medications Generic Name Dose Route Start Last Admin Trade Name Afsaneh PRN Reason Stop Dose Admin Acetaminophen 1,000 mg 03/17/25 00:40 03/17/25 00:46 Acetaminophen 500mg Tab PO 03/17/25 00:41 1,000 mg ONCE ONE Administration Iopamidol 160 ml 03/17/25 01:39 03/17/25 01:40 Iopamidol-370 (76%);100ml Bottle IV 03/17/25 01:40 160 ml ONCE ONE Administration Sodium Chloride 100 ml 03/17/25 01:39 03/17/25 01:40 0.9 % Sodium Chloride 50 Ml Vial IV 03/17/25 01:40 100 ml ONCE ONE Administration Sodium Chloride 10 ml 03/17/25 01:39 03/17/25 01:40 Sodium Chloride 0.9% 10ml Syr (Rad Only) IV 03/17/25 01:40 10 ml ONCE ONE Administration ORDERS Category Date Time Status CT angio abd/pel - TRAUMA Stat Cat Scan 03/17/25 00:[address] angio chest - dissection Stat Cat Scan 03/17/25 00:[address] angio head Stat Cat Scan 03/17/25 00:[address] angio neck Stat Cat Scan 03/17/25 00:[address] bony pelvis Stat Cat Scan 03/17/25 00:[address] cervical spine wo con Stat Cat Scan 03/17/25 00:[address] head/brain wo con Stat Cat Scan 03/17/25 00:[address] lumbar spine wo con Stat Cat Scan 03/17/25 00:[address] thoracic spine wo con Stat Cat Scan 03/17/25 00:40 Completed CBC w/Auto Diff [Complete Blood Count Auto Diff] Stat Lab 03/17/25 00:47 Completed CMP [Comprehensive Metabolic Panel] Stat Lab 03/17/25 00:47 Completed HIV Combo Routine Lab 03/17/25 00:47 Completed Hepatitis C Ab Qual. W/ RFX Routine Lab 03/17/25 00:47 Completed Medical Decision Narrative: 85-year-old male without significant past medical history presents for fall from a horse without a helmet, complaining of left low back pain. History was obtained via interactive discussion with patient. On arrival, patient is [afebrile, hemodynamically stable, satting appropriately, alert, oriented x4, GCS 15], moving all extremities spontaneously. Full physical exam performed and significant for focal left low back tenderness no other obvious traumatic findings. Given his advanced age and the severity of the trauma, I think patient requires full trauma imaging despite the fact that he looks generally well and is greater than 6 hours out from his injury. Differential includes but is not limited to intracranial trauma and thoracic trauma intra-abdominal trauma spine trauma extremity trauma. Patient was given Tylenol for symptomatic management and correction of underlying abnormalities. Workup initiated including full trauma labs and contrasted trauma CT scans.. On re-evaluation, patient [remains afebrile, HD stable.] Laboratory workup independently interpreted by me and significant for no significant leukocytosis, normal renal function. Minimally elevated AST.. Imaging independently interpreted by me and significant for L1/L2 nondisplaced transverse process fractures, no other acute traumatic injuries noted. See radiology read for full review of final results. Given patient history, exam and workup, patient's presentation most likely represents acute L1 transverse process fracture after fall off of horse. Radiology also noted a abnormality within the trachea that they recommend further evaluation for. These findings were dedicated to patient. He was given a lidocaine patch. He reports that he has muscle relaxers at home. He declined any stronger pain medications. He was discharged in stable condition with return precautions. Procedures Risk/Benefits of Procedure(s) Were Explained: Yes Critical Care Critical Care Time Critical Care Time: No
[2025-03-17 00:36] VITALS: BP 179/86; PULSE 78; RESP 16; TEMP 37; O2SAT 97
--- NOTE | 2025-03-17 00:40 | CT_ITS ---
PROCEDURE INFORMATION: Exam: CT Lumbar Spine Without Contrast Exam date and time: 03/17/2025 1:21 AM Age: 85 years old Clinical indication: Injury or trauma; Additional info: Trauma, critical injury suspected TECHNIQUE: Imaging protocol: Computed tomography of the lumbar spine without contrast. Radiation optimization: All CT scans at this facility use at least one of these dose optimization techniques: automated exposure control; mA and/or kV adjustment per patient size (includes targeted exams where dose is matched to clinical indication); or iterative reconstruction. COMPARISON: CT THORACIC SPINE WO CON 03/17/2025 1:19 AM FINDINGS: Bones/joints: Nondisplaced acute left-sided L1 transverse process fracture. Moderate lumbar degenerative changes. Facet joint degenerative changes are present. Multifocal central canal and neural foraminal stenosis, due to degeneration. 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 Disc space height loss and neural foraminal narrowing are resulting. Soft tissues: Unremarkable. IMPRESSION: 1. Nondisplaced acute left-sided L1 transverse process fracture. 2. Advanced degenerative changes of the lumbar spine.
--- NOTE | 2025-03-17 00:40 | CT_ITS ---
PROCEDURE INFORMATION: Exam: CT Thoracic Spine Without Contrast Exam date and time: 03/17/2025 1:19 AM Age: 85 years old Clinical indication: Injury or trauma; Additional info: Trauma, critical injury suspected TECHNIQUE: Imaging protocol: Computed tomography of the thoracic spine without contrast. Radiation optimization: All CT scans at this facility use at least one of these dose optimization techniques: automated exposure control; mA and/or kV adjustment per patient size (includes targeted exams where dose is matched to clinical indication); or iterative reconstruction. COMPARISON: CT CERVICAL SPINE WO CON 03/17/2025 1:17 AM FINDINGS: Tubes, catheters and devices: A pacemaker is present. Bones/joints: Anterior endplate osteophyte formation. Thoracic spondylosis is present. Surgical fusion noted in the cervical spine. Soft tissues: Unremarkable. Vasculature: Atherosclerosis is evident. IMPRESSION: Degenerative changes are present without acute osseous injury.
--- NOTE | 2025-03-17 00:40 | CT_ITS ---
PROCEDURE INFORMATION: Exam: CTA Neck With Contrast Exam date and time: 03/17/2025 1:28 AM Age: 85 years old Clinical indication: Injury or trauma; Additional info: Trauma, critical injury suspected TECHNIQUE: Imaging protocol: Computed tomographic angiography of the neck with contrast. Exam focused on the cervical segments of the vasculature. 3D rendering (Not supervised by radiologist): MIP and/or 3D reconstructed images were created by the technologist. Radiation optimization: All CT scans at this facility use at least one of these dose optimization techniques: automated exposure control; mA and/or kV adjustment per patient size (includes targeted exams where dose is matched to clinical indication); or iterative reconstruction. Contrast material: ISOVUE; Contrast volume: 80 ml; Contrast route: INTRAVENOUS (IV); COMPARISON: CT CERVICAL SPINE WO CON 03/17/2025 1:17 AM FINDINGS: Tubes, catheters and devices: Left chest wall pacemaker. Right common carotid artery: No stenosis. No dissection or occlusion. Right internal carotid artery: No stenosis of the extracranial segment. No dissection or occlusion. Right external carotid artery: No occlusion or stenosis of the origin. Left common carotid artery: No stenosis. No dissection or occlusion. Left internal carotid artery: No stenosis of the extracranial segment. No dissection or occlusion. Left external carotid artery: No occlusion or stenosis of the origin. Right vertebral artery: No stenosis. No dissection or occlusion. Left vertebral artery: No stenosis. No dissection or occlusion. Paranasal sinuses: Partial opacification of the left frontal sinus. Soft tissues: Normal. No significant soft tissue swelling. Bones/joints: No acute fracture. C3-C5 ACDF. Straightening of the cervical lordosis. No severe spinal canal stenosis. IMPRESSION: No stenosis or occlusion. REFERENCES: NASCET CRITERIA. The degree of stenosis in the cervical segment of the internal carotid artery is based on NASCET criteria. Normal is no stenosis. Mild is less than 50% stenosis. Moderate is 50-69% stenosis. Severe is 70% to 99% stenosis. Total occlusion is no detectable patent lumen.
--- NOTE | 2025-03-17 00:40 | CT_ITS ---
PROCEDURE INFORMATION: Exam: CT Head Without Contrast Exam date and time: 03/17/2025 1:15 AM Age: 85 years old Clinical indication: Injury or trauma; Thrown from a horse left lower back pain; Additional info: Trauma, critical injury suspected TECHNIQUE: Imaging protocol: Computed tomography of the head without contrast. Radiation optimization: All CT scans at this facility use at least one of these dose optimization techniques: automated exposure control; mA and/or kV adjustment per patient size (includes targeted exams where dose is matched to clinical indication); or iterative reconstruction. COMPARISON: No relevant prior studies available. FINDINGS: Brain: Atrophy and chronic small vessel ischemic changes. No hemorrhage. No mass effect or midline shift. Cerebral ventricles: No ventriculomegaly. Paranasal sinuses: Visualized sinuses are unremarkable. No fluid levels. Mastoid air cells: Visualized mastoid air cells are well aerated. Bones: Unremarkable. No acute fracture. Soft tissues: Unremarkable. IMPRESSION: Chronic changes in the brain but no acute intracranial abnormality.
--- NOTE | 2025-03-17 00:40 | CT_ITS ---
PROCEDURE INFORMATION: Exam: CTA Chest With Contrast Exam date and time: 03/17/2025 1:31 AM Age: 85 years old Clinical indication: Injury or trauma; Additional info: Trauma, critical injury suspected TECHNIQUE: Imaging protocol: Computed tomographic angiography of the chest with contrast. Exam focused on the arteries. 3D rendering (Not supervised by radiologist): MIP and/or 3D reconstructed images were created by the technologist. Radiation optimization: All CT scans at this facility use at least one of these dose optimization techniques: automated exposure control; mA and/or kV adjustment per patient size (includes targeted exams where dose is matched to clinical indication); or iterative reconstruction. Contrast material: ISOVUE; Contrast volume: 80 ml; Contrast route: INTRAVENOUS (IV); COMPARISON: CT ANGIO CHEST PE PROTOCOL 06/10/2022 2:01 AM FINDINGS: Pulmonary arteries: Pulmonary artery evaluation of good technical quality with no pulmonary artery embolism identified. Aorta: No thoracic aortic aneurysm, dissection or other acute thoracic aortic injury. Trachea: Along the right lower tracheal wall, 7 x 11 mm polypoid focus is uncertain if related to secretions or a true mucosal lesion. Lungs: Trace dependent atelectasis likely positional. Pleural spaces: Unremarkable. No pneumothorax. No pleural effusion. Heart: Unremarkable. No cardiomegaly. No pericardial effusion. Coronary arteries: Calcific coronary artery disease is evident. Lymph nodes: Unremarkable. No enlarged lymph nodes. Bones/joints: Old rib fractures are evident. Anterior endplate osteophyte formation. Nondisplaced left-sided L1 acute transverse process fracture. Surgical fusion noted in the cervical spine. Soft tissues: Unremarkable. IMPRESSION: 1. No thoracic aortic aneurysm, dissection or other acute thoracic aortic injury. 2. No pulmonary artery embolism identified. 3. No acute traumatic injuries of the chest identified. 4. Nondisplaced left-sided L1 acute transverse process fracture. 5. Along the right lower tracheal wall, 7 x 11 mm polypoid focus is uncertain if related to secretions or a true mucosal lesion. Consider short-term follow-up CT chest with attention to this region or bronchoscopic evaluation. COMMENTS: Please see CT abdomen regarding additional findings.
--- NOTE | 2025-03-17 00:40 | CT_ITS ---
PROCEDURE INFORMATION: Exam: CTA Head With Contrast, Arteriography Exam date and time: 03/17/2025 1:28 AM Age: 85 years old Clinical indication: Injury or trauma; Additional info: Trauma, critical injury suspected TECHNIQUE: Imaging protocol: Computed tomographic angiography of the head with contrast. Exam focused on the arteries. 3D rendering (Not supervised by radiologist): MIP and/or 3D reconstructed images were created by the technologist. Radiation optimization: All CT scans at this facility use at least one of these dose optimization techniques: automated exposure control; mA and/or kV adjustment per patient size (includes targeted exams where dose is matched to clinical indication); or iterative reconstruction. Contrast material: ISOVUE; Contrast volume: 80 ml; Contrast route: INTRAVENOUS (IV); COMPARISON: CT HEAD/BRAIN WO CON 03/17/2025 1:15 AM FINDINGS: ANTERIOR CIRCULATION: Right internal carotid artery: Intracranial segment is patent with no significant stenosis. No aneurysm. Right middle cerebral artery: No occlusion or significant stenosis. No aneurysm. Right anterior cerebral artery: No occlusion or significant stenosis. No aneurysm. Left internal carotid artery: Intracranial segment is patent with no significant stenosis. No aneurysm. Left middle cerebral artery: No occlusion or significant stenosis. No aneurysm. Left anterior cerebral artery: No occlusion or significant stenosis. No aneurysm. POSTERIOR CIRCULATION: Right vertebral artery: No occlusion or significant stenosis. No aneurysm. Left vertebral artery: No occlusion or significant stenosis. No aneurysm. Basilar artery: No occlusion or significant stenosis. No aneurysm. Right posterior cerebral artery: No occlusion or significant stenosis. No aneurysm. Left posterior cerebral artery: No occlusion or significant stenosis. No aneurysm. Brain: No definite mass, mass effect, or midline shift. Cerebral ventricles: No ventriculomegaly. Bones/joints: Unremarkable. No acute fracture. Soft tissues: Unremarkable. IMPRESSION: No large vessel stenosis or occlusion.
--- NOTE | 2025-03-17 00:40 | CT_ITS ---
PROCEDURE INFORMATION: Exam: CT Cervical Spine Without Contrast Exam date and time: 03/17/2025 1:17 AM Age: 85 years old Clinical indication: Injury or trauma; Additional info: Trauma, critical injury suspected TECHNIQUE: Imaging protocol: Computed tomography of the cervical spine without contrast. Radiation optimization: All CT scans at this facility use at least one of these dose optimization techniques: automated exposure control; mA and/or kV adjustment per patient size (includes targeted exams where dose is matched to clinical indication); or iterative reconstruction. COMPARISON: CT HEAD/BRAIN WO CON 03/17/2025 1:15 AM FINDINGS: Bones: No acute fracture. Normal alignment. ACDF C3, C4 and C5. Cervical disc fusion at C5-C6. There is disc osteophyte complex at C6-C7 with disc height narrowing and disc osteophyte complex resulting in neuroforaminal and central canal narrowing. Lungs: Lung apices are normal. Soft tissues: Unremarkable. IMPRESSION: No acute cervical spine fracture. Chronic and postsurgical changes.
--- NOTE | 2025-03-17 00:40 | CT_ITS ---
PROCEDURE INFORMATION: Exam: CT Pelvis Without Contrast, Skeleton Exam date and time: 03/17/2025 1:23 AM Age: 85 years old Clinical indication: Injury or trauma; Additional info: Trauma, critical injury suspected TECHNIQUE: Imaging protocol: Computed tomography of the pelvis without contrast. Exam focused on the skeleton. Radiation optimization: All CT scans at this facility use at least one of these dose optimization techniques: automated exposure control; mA and/or kV adjustment per patient size (includes targeted exams where dose is matched to clinical indication); or iterative reconstruction. COMPARISON: CT LUMBAR SPINE WO CON 03/17/2025 1:21 AM FINDINGS: Intestine: Left colon diverticulosis without associated inflammation. Vasculature: Atherosclerosis is evident. Bones/joints: Chondrocalcinosis, suggestive of calcium pyrophosphate deposition arthropathy. Mild degenerative changes of both hips. The pubic symphysis demonstrates degenerative changes. Moderate lumbar spine degenerative changes. Facet joint degenerative changes are present. Multifocal neural foraminal stenosis, due to degeneration. Soft tissues: Fat-containing umbilical hernia is present without inflammation. IMPRESSION: No acute fracture identified.
--- NOTE | 2025-03-17 00:40 | CT_ITS ---
PROCEDURE INFORMATION: Exam: CTA Abdomen and Pelvis With Contrast Exam date and time: 03/17/2025 1:31 AM Age: 85 years old Clinical indication: Injury or trauma; Additional info: Trauma, critical injury suspected TECHNIQUE: Imaging protocol: Computed tomographic angiography of the abdomen and pelvis with contrast. Exam focused on the arteries. 3D rendering (Not supervised by radiologist): MIP and/or 3D reconstructed images were created by the technologist. Radiation optimization: All CT scans at this facility use at least one of these dose optimization techniques: automated exposure control; mA and/or kV adjustment per patient size (includes targeted exams where dose is matched to clinical indication); or iterative reconstruction. Contrast material: ISOVUE; Contrast volume: 80 ml; Contrast route: INTRAVENOUS (IV); COMPARISON: CT BONY PELVIS 03/17/2025 1:23 AM FINDINGS: Aorta: No aortic aneurysm. No aortic dissection. 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 Distal celiac artery branches are patent. The superior and inferior mesenteric arteries are patent without significant stenosis. Renal arteries: No occlusion or significant stenosis. Right iliac arteries: No occlusion or significant stenosis. Left iliac arteries: No occlusion or significant stenosis. Liver: No mass. Gallbladder and biliary ducts: Unremarkable. No calcified stones. No ductal dilation. Pancreas: Unremarkable. No mass. No ductal dilation. Spleen: Unremarkable. No splenomegaly. Adrenal glands: Unremarkable. No mass. Kidneys and ureters: Unremarkable. No solid mass. No hydronephrosis. Stomach and bowel: There is colonic diverticulosis without evidence of diverticulitis. The small bowel is unremarkable. No bowel obstruction or inflammatory changes. Appendix: No evidence of appendicitis. Intraperitoneal space: Unremarkable. No free air. No significant fluid collection. Lymph nodes: Unremarkable. No enlarged lymph nodes. Urinary bladder: Unremarkable. No mass. Reproductive: Unremarkable as visualized. Bones/joints: Nondisplaced left L1 and L2 transverse process fractures. Advanced degenerative changes in the spine and pelvis. Multilevel lumbar spinal canal stenosis. 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 Soft tissues: Unremarkable. IMPRESSION: 1. Mild celiac artery origin stenosis. No evidence of vascular injury. 2. Nondisplaced left L1 and L2 transverse process fractures. 3. Bilateral pars defects at L5-S1. 4. Advanced degenerative spondylosis causing multilevel lumbar spinal canal stenosis. 5. Colonic diverticulosis without evidence of diverticulitis.
[2025-03-17] MEDS: ACETAMINOPHEN 500MG TAB 1000 MG PO (00:46)
[2025-03-17 00:56] LABS: Hematocrit 39.6 % (42.0-52.0); Hemoglobin 13.3 g/dL (14.1-18.0); Immature Granulocytes % 0.3 %; Mean Corpuscular HGB Conc 33.6 g/dL (31.8-35.4); Mean Corpuscular Hemoglobin 32.8 pg (27.0-31.2); Mean Corpuscular Volume 97.8 fl (80-94); Nucleated Red Blood Cells % 0 %; Platelet Count 204 K/mm3 (142-424); Red Blood Count 4.05 M/mm3 (4.60-6.20); Red Cell Distribution Width-SD 51.1 fL; White Blood Count 6.1 K/mm3 (4.8-10.8)
[2025-03-17 01:03] LABS: Alanine Aminotransferase 67 U/L (12-78); Albumin Level 4.3 g/dl (3.5-5.0); Albumin/Globulin Ratio 1.2 (1.1-1.8); Alkaline Phosphatase 367 U/L (38-126); Anion Gap 15.8 mEq/L (5-15); Aspartate Amino Transferase 85 U/L (17-59); Bilirubin,Total 0.7 mg/dl (0.2-1.3); Blood Urea Nitrogen 17 mg/dl (9-20); Calcium 9.3 mg/dl (8.4-10.2); Carbon Dioxide 24 mmol/L (22.0-30.0); Chloride 102 mmol/L (98-107); Creatinine Clearance Estimated 54 mL/min (50-200); Creatinine,Serum 0.70 mg/dl (0.66-1.25); Estimated Glomerular Filt Rate 108 ml/min (>60); GFR (African American) 130 ML/MIN (>60); Globulin 3.6 g/dL (1.3-3.2); Glucose 168 mg/dl (74-100); Potassium 4.8 mmoL/L (3.5-5.1); Sodium 137 mmol/L (136-145); Total Protein,Serum 7.9 g/dl (6.3-8.2)
[2025-03-17] MEDS: SODIUM CHLORIDE 0.9% 10ML SYR (RAD ONLY) 10 ML IV (01:40)
[2025-03-17] MEDS: IOPAMIDOL-370 (76%);100ML BOTTLE 160 ML IV (01:40)
[2025-03-17] MEDS: 0.9 % SODIUM CHLORIDE 50 ML VIAL 100 ML IV (01:40)
[2025-03-17 02:15] VITALS: BP 176/90; PULSE 66; RESP 16; O2SAT 96
[2025-03-17 02:24] LABS: Hepatitis C Ab Qual. W/ RFX NEGATIVE (Negative)
[2025-03-17 02:31] VITALS: BP 157/77; PULSE 60; RESP 16; TEMP 37; O2SAT 97
== END 2025-03-17 02:42 | disposition home or self-care (01) ==
PROVIDERS: Emergency Provider Emergency Medicine
DX: S32.019A Unspecified fracture of first lumbar vertebra, initial encounter for closed fracture (principal); V80.010A Animal-rider injured by fall from or being thrown from horse in noncollision accident, initial encounter
CPT/HCPCS: 70450; 70496; 70498; 71275; 72125; 72128; 72131; 72192; 74174; 80053; 85025; 86803; 87389; 99284; 99285; Q9967